=== PATIENT | male | born 1975 | race Caucasian/White ===

== ENCOUNTER 2016-10-17 04:40 | Emergency (ER) | payer BC ==
--- NOTE | ~2016-10-17 | EKG ---
PATIENT: MADISON MEYERS UNIT #: [id number] Ventricular Rate: 69 BPM Atrial Rate: 69 BPM P-R Interval: 212 ms QRS Duration: 86 ms Q-T Interval: 378 ms QTC Calculation(Bezet): 405 ms P [place]: 47 degrees Calculated R [place]: 21 degrees Calculated T [place]: 37 degrees Diagnosis Line: Sinus rhythm with 1st degree A-V block Diagnosis Line: Otherwise normal ECG Diagnosis Line: When compared with ECG of 25-MAR-2015 10:27, Diagnosis Line: No significant change was found Diagnosis Line: Confirmed by SHEA HUFF MD ([id number]) on Diagnosis Line: 10/23/2016 9:00:31 AM INTERPRETING MD: REFUGIO SMALL
--- NOTE | ~2016-10-17 | CR72 ---
[facility]. [facility] A Service of [facility] RADIOLOGY TEXT RESULTS PATIENT: MADISON MEYERS LOCATION: SED : 75 UNIT #: [id number] AGE: [address]: Alexis Chinchilla MD SEX: M ORDER DR: [id number] [address] [address] [id number] MR#: [id number] Acc #: [id number] NAME: MADISON MEYERS : 1975 SEX: M STUDY DATE/TIME: 10/17/2016 5:16 UNIT: SED ROOM: STUDY DESCRIPTION: CR Chest Single View Portable Attending Physician: Alexis Chinchilla M.D. Ordering Physician: Alexis Chinchilla M.D. Primary Care Physician: Toby Feliciano M.D. MEDICAL IMAGING REPORT This report is preliminary unless electronic signature is present. EXAM Portable chest. INDICATIONS Chest pain for 2 days. COMPARISON 03/25/2015 FINDINGS A portable upright view of the chest was obtained. Heart size and vascularity are normal and the lungs are clear and the bones are unremarkable. IMPRESSION No active disease. Dictated by... Viktor Mcmillan M.D. THIS IS AN ELECTRONICALLY VERIFIED REPORT Viktor Mcmillan M.D. at 10/17/2016 8:21 PM SHAYAN/blaise TD: 10/17/2016 16:13 JOB #: [id number] MEDICAL IMAGING REPORT Page 1 of 1
[~2016-10-17 04:40] MED LIST: ALBUTEROL17 GM INH; BACTRIM DS TABL1 TA2 PO; DELTASONE20 MG PO; HYDROMET SYRUP480 ML PO; KEFLEX500 M1 PO; NO MEDICATIONS; NORCO 5/325 TAB1 TAB PO; PREDNISONE PO; ROBAXIN500 MG PO; ROBITUSSIN A-C S5 ML PO; ZESTRIL10 MG PO; ZITHROMAX PO
[2016-10-17] MEDS ORDERED: LISINOPRIL (04:51)
[2016-10-17 05:16] LABS: BASOPHIL# 0.1 X10e3 (0-0.3); BASOPHIL% 0.6 % (0-2.5); DIFF IND NO; EOSINOPHIL# 0.2 X10e3 (0-0.7); EOSINOPHIL% 2.4 % (0.0-7.0); HEMATOCRIT 42.9 % (38.0-50.0); LYMPHOCYTE# 3.5 X10e3 (1.0-3.5); LYMPHOCYTE% 33.4 % (17.0-45.0); MEAN CELL VOLUME 90.9 FL (83-96); MEAN CORPUSCULAR HEMOGLOBIN 31.7 PG (28-34); MEAN CORPUSCULAR HGB CONC 34.9 g/dL (30-36); MEAN PLATELET VOLUME 9.1 FL (6.5-11.5); MONOCYTE# 0.6 X10e3 (0-1.0); NEUTROPHIL# 6.1 X10e3 (1.5-7.1); NEUTROPHIL% 57.6 % (40-75); PLATELET COUNT 191 X10e3 (140-420); RED BLOOD COUNT 4.72 X10e (3.90-5.60); RED CELL DISTRIBUTION WIDTH 13.5 % (11.0-15.5); WHITE BLOOD COUNT 10.5 X10e3 (4.0-10.5)
[2016-10-17 05:25] LABS: POC - CKMB <1.0 ng/mL (0.0-7.9); POC - TROPONIN <0.05 ng/mL (<=0.05)
[2016-10-17 05:25] LABS: ALBUMIN SERUM 4.1 g/dL (3.5-5.0); ALKALINE PHOSPHATASE 65 U/L (32-92); ALT (SGPT) 20 U/L (10-40); AST (SGOT) 18 U/L (10-42); BILIRUBIN,TOTAL 0.2 mg/dL (0.2-2.0); BLOOD UREA NITROGEN 11 mg/dL (9-23); CALCIUM SERUM 8.9 mg/dL (8.4-10.2); CARBON DIOXIDE 27 mmol/L (22-31); CHLORIDE 102 mmol/L (100-111); GLOM FILT RATE Estimated 93.1 mL/min (>60); GLUCOSE FASTING 116 mg/dL (70-110); POTASSIUM 3.5 mmol/L (3.5-5.1); SODIUM 137 mmol/L (135-145)
[2016-10-17 05:26] LABS: BILIRUBIN, DIRECT <0.1 mg/dL (0.0-0.2); BILIRUBIN,INDIRECT 0.1 mg/dL (0.0-0.9)
[2016-10-17 06:55] LABS: POC - CKMB <1.0 ng/mL (0.0-7.9); POC - TROPONIN <0.05 ng/mL (<=0.05)
== END 2016-10-17 07:07 | disposition home or self-care (01) ==
LOC: SED 04:40
PROVIDERS: Emergency Medicine
DX: R07.89 Other chest pain (principal); I10 Essential (primary) hypertension; E78.00 Pure hypercholesterolemia, unspecified; F17.210 Nicotine dependence, cigarettes, uncomplicated; Z91.041 Radiographic dye allergy status
CPT/HCPCS: 36415; 71010; 80048; 80076; 82553; 84484; 85025; 93005; 99285